=== PATIENT | male | born 1935 | race Two or more races ===

== ENCOUNTER 2020-09-07 13:28 | Outpatient (CLI) | payer OTHER | END 2020-09-07 13:29 | disposition home or self-care (01) | LOC: PPH VACUNA 13:28 | PROVIDERS: ATTEND Emergency Medicine Pediatric Emergency Medicine | DX: Z23 Encounter for immunization (principal) ==

== ENCOUNTER 2020-10-17 08:16 | Emergency (ER) | payer OTHER ==
[~2020-10-17] VITALS: Ht 177.8 cm; Wt 65.8 kg
[2020-10-17] MEDS ORDERED: TOPROL XL50 MG (08:34)
== END 2020-10-17 10:57 | disposition home or self-care (01) ==
LOC: ER 08:16
DX: B02.30 Zoster ocular disease, unspecified (principal)

== ENCOUNTER → 2021-03-09 | Outpatient (CLI) | payer OTHER ==
[~2021-03-09] MED LIST: TOPROL XL50 MG
== END | disposition home or self-care (01) ==
LOC: TOM 16:07
PROVIDERS: ATTEND Specialist
DX: J47.1 Bronchiectasis with (acute) exacerbation (principal)

== ENCOUNTER 2021-03-31 14:08 | Outpatient (CLI) | payer OTHER | END 2021-03-31 14:19 | disposition home or self-care (01) | LOC: RAD 14:08 | PROVIDERS: ATTEND Specialist | DX: M16.0 Bilateral primary osteoarthritis of hip (principal) ==

== ENCOUNTER 2025-01-05 18:07 | Emergency (ER) | payer OTHER ==
[~2025-01-05] VITALS: Ht 172.7 cm; Wt 65.8 kg
[~2025-01-05 18:07] MED LIST changes: +ELIQUIS2.5 MG PO; +OFLOXACIN5 ML OP; +SYNTHROID88 MCG PO
[2025-01-05] MEDS ORDERED: ROSUVASTATIN CAL5 MG PO (18:51)
[2025-01-05 19:29] LABS: HEMATOCRIT 46.5 % (39.0-48.0); HEMOGLOBIN 15.2 g/dL (13-16.00); MEAN CELL VOLUME 88.9 fL (80.0-100.00); MEAN CORPUSCULAR HGB CONC 32.6 g/dl (32.0-36.0); PLATELET COUNT 245 K/uL (150-450); RED BLOOD COUNT 5.24 M/uL (4.00-6.00); RED CELL DISTRIBUTION WIDTH 15.3 % (11.5-14.5)
[2025-01-05 19:49] LABS: BILIRUBIN TOTAL 0.93 mg/dL (0.3-1.2); BILIRUBIN,CONJUGATED 0.28 mg/dL (0.0-0.2); BILIRUBIN,UNCONJUGATED 0.65 mg/dL (0.0-0.6); CALCIUM 10.2 mg/dL (8.5-10.1); CREATININE SERUM 1.64 mg/dL (0.70-1.30); GFR 39.84; GLOBULINA 4.1 G/DL (2.4-3.5); POTASSIUM 4.66 mEq/L (3.5-5.1); TOTAL PROTEIN 8.1 gm/dL (6.4-8.2)
[2025-01-05 21:59] LABS: URINE APPEARANCE Cloudy; URINE BILIRRUBIN Negative (NEGATIVE); URINE BLOOD Negative; URINE COLOR Yellow; URINE GLUCOSE Negative (NEGATIVE); URINE KETONE Negative (NEGATIVE); URINE LEUKOCYTE Negative; URINE NITRATE Negative; URINE PROTEIN Trace (NEGATIVE); URINE UROBILINOGEN 0.2 E.U./dl
[2025-01-05 22:01] LABS: URINE EPITHELIAL CELLS 23.9 uL (0.0-38.8); URINE RBC 7.9 uL (0.0-20.8); URINE WBC 13.2 uL (0.0-23.2)
[2025-01-05 22:02] LABS: URINE BACTERIA 1031.7 uL (0.0-1933)
== END 2025-01-05 21:41 | disposition home or self-care (01) ==
LOC: ER 18:08
PROVIDERS: General Practice
DX: R10.9 Unspecified abdominal pain (principal); I10 Essential (primary) hypertension; E03.8 Other specified hypothyroidism; I12.9 Hypertensive chronic kidney disease with stage 1 through stage 4 chronic kidney disease, or unspecified chronic kidney disease; I49.8 Other specified cardiac arrhythmias; K57.32 Diverticulitis of large intestine without perforation or abscess without bleeding

== ENCOUNTER → 2025-01-12 | Outpatient (CLI) | payer OTHER ==
[~2025-01-12] MED LIST changes: +ROSUVASTATIN CAL5 MG PO
== END | disposition home or self-care (01) ==
LOC: SONOGRAMA 15:25
DX: E03.9 Hypothyroidism, unspecified (principal)